=== PATIENT | female | born 1985 | race Caucasian/White ===

== ENCOUNTER 2017-02-21 18:57 | Emergency (ER) | payer SELFPAY ==
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
[2017-02-21 20:22] VITALS: BP 98/67; PULSE 83; RESP 20; TEMP 99; O2SAT 95
== END 2017-02-21 20:21 | disposition home or self-care (01) ==
DX: S09.90XA Unspecified injury of head, initial encounter (principal); R55 Syncope and collapse; W22.8XXA Striking against or struck by other objects, initial encounter

== ENCOUNTER → 2018-02-23 | Outpatient (CLI) | payer OTHER | LOC: FIMAGING 13:10 | PROVIDERS: ATTEND Internal Medicine | DX: I51.7 Cardiomegaly (principal); K51.90 Ulcerative colitis, unspecified, without complications ==

== ENCOUNTER → 2018-04-04 | Outpatient (CLI) | payer OTHER | LOC: FIMAGING 12:44 | PROVIDERS: ATTEND Internal Medicine Gastroenterology | DX: K51.80 Other ulcerative colitis without complications (principal) ==

== ENCOUNTER → 2018-06-12 | Outpatient (CLI) | payer OTHER | LOC: FIMAGING 09:47 | PROVIDERS: ATTEND Physician Assistant | DX: R10.84 Generalized abdominal pain (principal) ==